=== PATIENT | male | born 1950 | race African-American/Black ===

== ENCOUNTER 2017-05-06 08:25 | Inpatient (IN) | payer OTHER, MEDICAID ==
[~2017-05-06] VITALS: Ht 182.9 cm; Wt 83.0 kg
[2017-05-06] MEDS ORDERED: NAPR-679 PO (08:29)
[2017-05-06] MEDS ORDERED: LORA10TA7 PO (08:29)
[2017-05-06] MEDS ORDERED: AMLODIPINE 2.5MG TABLET PO ONE (08:45)
[2017-05-06 09:22] LABS: BASOPHILS % 1.1 % (0.0-2.0); EOSINOPHILS % 1.4 % (0.0-5.0); HEMATOCRIT. 38.1 % (42.0-52.0); HEMOGLOBIN. 12.6 g/dL (14.0-18.0); LYMPHOCYTES % 39.2 % (20.0-50.0); MEAN CORPUSCULAR HEMOGLOBIN 29.3 pg (28.0-32.0); MEAN CORPUSCULAR VOLUME 88.7 fL (80.0-94.0); MEAN PLATELET VOLUME 10.5 fl (7.4-10.4); MONOCYTES % 7.1 % (2.0-8.0); NEUTROPHILS % 51.2 % (40.0-76.0); PLATELET 138 x1000/uL (130-400); RED BLOOD CELL COUNT 4.29 mill/uL (4.7-6.1); RED CELL DISTRIBUTION WIDTH 13.3 % (11.6-14.6)
[2017-05-06 09:37] LABS: CARBON DIOXIDE 27 mEq/L (21-32); CHLORIDE 110 mEq/L (98-107); TROPONIN I < 0.02 ng/mL (0.00-0.04)
[2017-05-06 09:48] LABS: INR 1.1; PARTIAL THROMBOPLASTIN TIME 23.9 sec (23.4-31.0); PROTHROMBIN TIME 11.2 sec (9.4-11.6)
[2017-05-06 12:28] VITALS: BP 180/82
[2017-05-06] MEDS ORDERED: ENOXAPARIN 40MG/0.4ML SYR SUBCUT SCH ×2 (13:00→22:00)
[2017-05-06] MEDS: LISINOPRIL 40MG TABLET PO SCH ×2 (13:39→20:11)
[2017-05-06] MEDS: HYDROCHLOROTHIAZIDE 25MG TABLET PO SCH (13:39)
[2017-05-06 13:53] VITALS: BP 180/82
[2017-05-06 15:34] LABS: CREATINE KINASE 234 IU/L (39-308); CREATINE KINASE MB FRACTION 3.3 ng/mL (0.5-3.6); TROPONIN I < 0.02 ng/mL (0.00-0.04)
[2017-05-06 16:01] VITALS: BP 130/75
[2017-05-06] MEDS: ACETAMINOPHEN 325MG TABLET PO PRN (20:10)
[2017-05-06 20:18] VITALS: BP 136/76
[2017-05-06] MEDS ORDERED: ONDANSETRON HCL 4MG/2ML VIAL IV PRN (22:00)
[2017-05-06] MEDS ORDERED: HYDROCODONE/ACETAMINOPHEN 5/325MG TABLET PO PRN (22:00)
[2017-05-06] MEDS ORDERED: MORPHINE SULFATE 2 MG/ML CPJ (NOT FOR IM USE) IV PRN (22:00)
[2017-05-06] MEDS ORDERED: CLONIDINE 0.1MG TABLET PO PRN (22:00)
[2017-05-06] MEDS ORDERED: LORAZEPAM 2MG/ML CPJ IV PRN (22:00)
[2017-05-06 23:32] LABS: CREATINE KINASE 187 IU/L (39-308); TROPONIN I < 0.02 ng/mL (0.00-0.04)
[2017-05-07] VITALS: BP 129/75
[2017-05-07 04:00] VITALS: BP 113/75
[2017-05-07 06:22] LABS: HEMATOCRIT 36.8 % (42.0-52.0); HEMOGLOBIN 12.1 g/dL (14.0-18.0); MEAN CORPUSCULAR HEMOGLOBIN 29.3 pg (28.0-32.0); MEAN CORPUSCULAR VOLUME 89.5 fL (80.0-94.0); PLATELET 132 x1000/uL (130-400); RED BLOOD CELL COUNT 4.11 mill/uL (4.7-6.1); RED CELL DISTRIBUTION WIDTH 13.4 % (11.6-14.6)
[2017-05-07 06:55] LABS: CARBON DIOXIDE 28 mEq/L (21-32); CHLORIDE 108 mEq/L (98-107)
[2017-05-07 07:05] LABS: CLARITY URINE CLEAR (CLEAR); COLOR URINE YELLOW (YELLOW); GLUCOSE URINE TRACE (NEGATIVE); KETONES URINE NEGATIVE (NEGATIVE); LEUKOCYTE ESTERASE URINE NEGATIVE (NEGATIVE); NITRITE URINE NEGATIVE (NEGATIVE); OCCULT BLOOD URINE NEGATIVE (NEGATIVE); PROTEIN URINE NEGATIVE (NEGATIVE); SPECIFIC GRAVITY URINE 1.026 (1.005-1.030)
[2017-05-07 07:34] LABS: *AMPHETAMINES SCREEN URINE NEGATIVE (NEGATIVE); *BARBITURATES SCREEN URINE NEGATIVE (NEGATIVE); *BENZODIAZEPINES SCREEN URINE NEGATIVE (NEGATIVE); CANNABINOID URINE SCREEN NEGATIVE (NEGATIVE); METHADONE URINE SCREEN NEGATIVE (NEGATIVE); OPIATES URINE SCREEN NEGATIVE (NEGATIVE); PHENCYCLIDINE URINE SCREEN NEGATIVE (NEGATIVE)
[2017-05-07 08:00] VITALS: BP 139/82
[2017-05-07] MEDS: ACETAMINOPHEN 325MG TABLET PO PRN (08:09)
[2017-05-07] MEDS: HYDROCHLOROTHIAZIDE 25MG TABLET PO SCH (08:53)
[2017-05-07] MEDS: FOLIC ACID 1MG TABLET PO SCH (08:53)
[2017-05-07] MEDS: ASPIRIN 81MG EC TABLET PO SCH (08:53)
[2017-05-07] MEDS: LISINOPRIL 40MG TABLET PO SCH (08:54)
[2017-05-07] MEDS: ENOXAPARIN 40MG/0.4ML SYR SUBCUT SCH (08:55)
[2017-05-07 09:00] LABS: *COCAINE SCREEN URINE NEGATIVE (NEGATIVE)
[2017-05-07] MEDS: POTASSIUM CHLORIDE 20MEQ TABLET SR PO SCH (11:03)
[2017-05-07] MEDS: SODIUM CHLORIDE 0.9% 1,000 ML IV SCH (11:29)
[2017-05-07 12:00] VITALS: BP 124/75
[2017-05-07] MEDS ORDERED: POTASSIUM CHLORIDE 20MEQ TABLET SR PO NR (12:30)
[2017-05-07] MEDS: AMLODIPINE 5MG TABLET PO SCH ×2 (13:21→21:13)
[2017-05-07 16:00] VITALS: BP 115/59
[2017-05-07 20:00] VITALS: BP 122/74
[2017-05-07] MEDS ORDERED: DEXTROSE 50% WATER 50ML SYRINGE IV PRN (21:45)
[2017-05-07] MEDS: INSULIN LISPRO 100 UNITS/ML SUBCUT SCH (22:45)
[2017-05-08] VITALS: BP 120/68
[2017-05-08 04:00] VITALS: BP_SYST 117; BP_SYST 120; BP_DIAS 70; BP_DIAS 71
[2017-05-08] MEDS: SODIUM CHLORIDE 0.9% 1,000 ML IV SCH (04:16)
[2017-05-08 05:44] LABS: BASOPHILS % 0.6 % (0.0-2.0); EOSINOPHILS % 1.6 % (0.0-5.0); HEMATOCRIT. 34.4 % (42.0-52.0); HEMOGLOBIN. 11.3 g/dL (14.0-18.0); LYMPHOCYTES % 53.2 % (20.0-50.0); MEAN CORPUSCULAR HEMOGLOBIN 29.2 pg (28.0-32.0); MEAN PLATELET VOLUME 10.6 fl (7.4-10.4); MONOCYTES % 8.3 % (2.0-8.0); NEUTROPHILS % 36.3 % (40.0-76.0); PLATELET 129 x1000/uL (130-400); RED BLOOD CELL COUNT 3.87 mill/uL (4.7-6.1); RED CELL DISTRIBUTION WIDTH 13.1 % (11.6-14.6)
[2017-05-08] MEDS: BLOOD SUGAR DIAGNOSTIC STRIP TEST SCH ×4 (06:45→20:46)
[2017-05-08 08:00] VITALS: BP 128/75
[2017-05-08] MEDS: ASPIRIN 81MG EC TABLET PO SCH (08:23)
[2017-05-08] MEDS: FOLIC ACID 1MG TABLET PO SCH (08:23)
[2017-05-08] MEDS: AMLODIPINE 5MG TABLET PO SCH ×2 (08:23→20:46)
[2017-05-08] MEDS: POTASSIUM CHLORIDE 20MEQ TABLET SR PO SCH (08:23)
[2017-05-08] MEDS: ENOXAPARIN 40MG/0.4ML SYR SUBCUT SCH (08:24)
[2017-05-08] MEDS: INSULIN LISPRO 100 UNITS/ML SUBCUT SCH ×4 (08:26→20:47)
[2017-05-08 08:44] LABS: CARBON DIOXIDE 25 mEq/L (21-32); CHLORIDE 106 mEq/L (98-107)
[2017-05-08 08:47] LABS: HDL CHOLESTEROL 42 mg/dL (40-59); LDL CHOLESTEROL 74 mg/dL (5-100)
[2017-05-08 12:00] VITALS: BP 135/74
[2017-05-08] MEDS ORDERED: POTASSIUM CHLORIDE 20MEQ TABLET SR PO SCH (12:45)
[2017-05-08 16:00] VITALS: BP 126/76
[2017-05-08 20:00] VITALS: BP 121/66
[2017-05-08 21:29] LABS: VITAMIN B12 SERUM 511 pg/mL (211-911)
[2017-05-09] VITALS (7 sets, daily range): BP systolic 109–137; BP diastolic 63–92
[2017-05-09 06:56] LABS: BASOPHILS % 0.6 % (0.0-2.0); EOSINOPHILS % 1.5 % (0.0-5.0); HEMATOCRIT. 38.9 % (42.0-52.0); HEMOGLOBIN. 12.9 g/dL (14.0-18.0); LYMPHOCYTES % 48.8 % (20.0-50.0); MEAN CORPUSCULAR HEMOGLOBIN 29.4 pg (28.0-32.0); MEAN PLATELET VOLUME 10.7 fl (7.4-10.4); NEUTROPHILS % 41.1 % (40.0-76.0); PLATELET 138 x1000/uL (130-400); RED BLOOD CELL COUNT 4.38 mill/uL (4.7-6.1); RED CELL DISTRIBUTION WIDTH 12.8 % (11.6-14.6)
[2017-05-09] MEDS: BLOOD SUGAR DIAGNOSTIC STRIP TEST SCH ×4 (07:40→21:01)
[2017-05-09 08:02] LABS: CARBON DIOXIDE 28 mEq/L (21-32); CHLORIDE 107 mEq/L (98-107)
[2017-05-09] MEDS: INSULIN LISPRO 100 UNITS/ML SUBCUT SCH ×4 (08:10→21:11)
[2017-05-09] MEDS: ASPIRIN 81MG EC TABLET PO SCH (08:22)
[2017-05-09] MEDS: ENOXAPARIN 40MG/0.4ML SYR SUBCUT SCH (08:25)
[2017-05-09] MEDS: FOLIC ACID 1MG TABLET PO SCH (08:26)
[2017-05-09] MEDS: POTASSIUM CHLORIDE 20MEQ TABLET SR PO SCH (08:26)
[2017-05-09] MEDS: AMLODIPINE 5MG TABLET PO SCH ×2 (08:26→21:01)
[2017-05-09] MEDS ORDERED: REGADENOSON 0.4 MG/5 ML IV ONE (13:30)
[2017-05-09] MEDS ORDERED: IOHEXOL-350 100 ML BOTTLE ONE (13:58)
[2017-05-09] MEDS ORDERED: SODIUM CHLORIDE 0.9% 10ML VIAL ONE (13:58)
[2017-05-10] VITALS (7 sets, daily range): BP systolic 104–138; BP diastolic 66–80
[2017-05-10] MEDS: BLOOD SUGAR DIAGNOSTIC STRIP TEST SCH ×4 (05:51→21:34)
[2017-05-10 06:58] LABS: BASOPHILS % 0.5 % (0.0-2.0); EOSINOPHILS % 1.9 % (0.0-5.0); HEMATOCRIT. 37.5 % (42.0-52.0); HEMOGLOBIN. 12.4 g/dL (14.0-18.0); LYMPHOCYTES % 43.6 % (20.0-50.0); MEAN CORPUSCULAR HEMOGLOBIN 29.6 pg (28.0-32.0); MEAN CORPUSCULAR VOLUME 89.4 fL (80.0-94.0); MEAN PLATELET VOLUME 10.9 fl (7.4-10.4); MONOCYTES % 8.4 % (2.0-8.0); NEUTROPHILS % 45.6 % (40.0-76.0); PLATELET 130 x1000/uL (130-400); RED CELL DISTRIBUTION WIDTH 13.2 % (11.6-14.6)
[2017-05-10 08:05] LABS: CARBON DIOXIDE 27 mEq/L (21-32); CHLORIDE 107 mEq/L (98-107)
[2017-05-10] MEDS: INSULIN LISPRO 100 UNITS/ML SUBCUT SCH ×4 (08:10→22:18)
[2017-05-10] MEDS: ENOXAPARIN 40MG/0.4ML SYR SUBCUT SCH (08:20)
[2017-05-10] MEDS: POTASSIUM CHLORIDE 20MEQ TABLET SR PO SCH (08:21)
[2017-05-10] MEDS: ASPIRIN 81MG EC TABLET PO SCH (08:21)
[2017-05-10] MEDS: FOLIC ACID 1MG TABLET PO SCH (08:21)
[2017-05-10] MEDS: AMLODIPINE 5MG TABLET PO SCH ×2 (08:28→21:34)
[2017-05-10] MEDS: ACETAMINOPHEN 325MG TABLET PO PRN (10:36)
[2017-05-10] MEDS ORDERED: REGADENOSON 0.4 MG/5 ML IV ONE (11:35)
[2017-05-11] VITALS: BP 135/83
[2017-05-11 04:00] VITALS: BP 107/61
[2017-05-11] MEDS: BLOOD SUGAR DIAGNOSTIC STRIP TEST SCH (05:53)
[2017-05-11 08:00] VITALS: BP 140/80
[2017-05-11] MEDS: FOLIC ACID 1MG TABLET PO SCH (08:31)
[2017-05-11] MEDS: ASPIRIN 81MG EC TABLET PO SCH (08:31)
[2017-05-11] MEDS: AMLODIPINE 5MG TABLET PO SCH (08:31)
[2017-05-11] MEDS: POTASSIUM CHLORIDE 20MEQ TABLET SR PO SCH (08:32)
[2017-05-11] MEDS: ENOXAPARIN 40MG/0.4ML SYR SUBCUT SCH (08:34)
[2017-05-11] MEDS: INSULIN LISPRO 100 UNITS/ML SUBCUT SCH (08:35)
[2017-05-11 10:43] VITALS: BP 140/80
[2017-05-11] MEDS ORDERED: PNEUMOCOCCAL 23-VAL P-SAC VAC 0.5 ML IM ONE (11:15)
== END 2017-05-11 12:45 | disposition home or self-care (01) | DRG 639 ==
LOC: ER 08:36 → EDBEDREQ 10:22 → 7WST 11:00 → EDBD 11:00 → EDBEDREQ 11:01 → ENRESERV 11:01 → 7WST 13:24
PROVIDERS: ADMIT Internal Medicine; ATTEND Internal Medicine Nephrology
DX: E11.65 Type 2 diabetes mellitus with hyperglycemia (principal); G93.89 Other specified disorders of brain; G90.8 Other disorders of autonomic nervous system; W18.39XA Other fall on same level, initial encounter; R55 Syncope and collapse; I10 Essential (primary) hypertension; D64.9 Anemia, unspecified; E87.6 Hypokalemia; M19.90 Unspecified osteoarthritis, unspecified site; Z79.899 Other long term (current) drug therapy; Z82.49 Family history of ischemic heart disease and other diseases of the circulatory system; Y93.89 Activity, other specified; Y92.89 Other specified places as the place of occurrence of the external cause; Y99.8 Other external cause status
CPT/HCPCS: 36415; 70450; 70544; 70553; 71010; 71275; 78452; 80048; 80053; 80061; 80305; 81001; 82550; 82553; 82607; 82962; 83036; 83735; 83880; 84443; 84484; 85025; 85027; 85379; 85610; 85730; 90732; 93005; 93017; 93306; 93880; 97116; 97162; 99285; A4216; A9500; J1650; J1815; J2785; J7030; Q9967

== ENCOUNTER 2021-02-28 06:26 | Emergency (ER) | payer OTHER, MEDICAID ==
[~2021-02-28] VITALS: Ht 182.9 cm; Wt 102.0 kg
[~2021-02-28 06:26] MED LIST: LORA10TA7 PO; NAPR-679 PO
[2021-02-28 08:12] LABS: CHLORIDE 109 mEq/L (98-107)
[2021-02-28 08:16] LABS: ETHANOL BLOOD < 10 mg/dL
[2021-02-28 08:24] LABS: EOSINOPHILS % 0.6 % (0.0-5.0); HEMATOCRIT. 36.1 % (42.0-52.0); HEMOGLOBIN. 11.9 g/dL (14.0-18.0); LYMPHOCYTES % 23.1 % (20.0-50.0); MEAN CORPUSCULAR HEMOGLOBIN 30.4 pg (28.0-32.0); MEAN CORPUSCULAR VOLUME 91.9 fL (80.0-94.0); MEAN PLATELET VOLUME 10.6 fl (7.4-10.4); MONOCYTES % 7.4 % (2.0-8.0); NEUTROPHILS % 67.9 % (40.0-76.0); PLATELET 145 x1000/uL (130-400); RED BLOOD CELL COUNT 3.93 mill/uL (4.7-6.1); RED CELL DISTRIBUTION WIDTH 13.2 % (11.6-14.6)
[2021-02-28 09:00] LABS: CLARITY URINE CLEAR (CLEAR); COLOR URINE YELLOW (YELLOW); KETONES URINE NEGATIVE (NEGATIVE); LEUKOCYTE ESTERASE URINE NEGATIVE (NEGATIVE); NITRITE URINE NEGATIVE (NEGATIVE); OCCULT BLOOD URINE NEGATIVE (NEGATIVE); PH URINE 5.5 (4.5-8.0); PROTEIN URINE NEGATIVE (NEGATIVE); SPECIFIC GRAVITY URINE 1.028 (1.005-1.030); UROBILINOGEN URINE 0.2 E.U./dL (0.2-1.0)
[2021-02-28 09:49] LABS: *AMPHETAMINES SCREEN URINE NEGATIVE (NEGATIVE)
[2021-02-28 09:50] LABS: *BARBITURATES SCREEN URINE NEGATIVE (NEGATIVE); *BENZODIAZEPINES SCREEN URINE NEGATIVE (NEGATIVE); *COCAINE SCREEN URINE NEGATIVE (NEGATIVE); METHADONE URINE SCREEN NEGATIVE (NEGATIVE); OPIATES URINE SCREEN NEGATIVE (NEGATIVE); PHENCYCLIDINE URINE SCREEN NEGATIVE (NEGATIVE)
[2021-02-28 09:51] LABS: CANNABINOID URINE SCREEN NEGATIVE (NEGATIVE)
[2021-02-28] MEDS ORDERED: HYDRALAZINE 20MG/ML VIAL IV PRN (11:15)
[2021-02-28] MEDS ORDERED: DEXTROSE 50% WATER 50ML SYRINGE IV PRN (11:15)
[2021-02-28] MEDS ORDERED: BLOOD SUGAR DIAGNOSTIC STRIP TEST SCH (13:00)
[2021-02-28] MEDS ORDERED: INSULIN LISPRO 100 UNITS/ML SUBCUT SCH (13:20)
[2021-02-28 14:04] VITALS: BP 159/79
== END 2021-02-28 14:21 | disposition short-term general hospital (02) ==
LOC: ER 06:26 → EDBEDREQ 10:57 → EDBEDREQTM 10:57 → ER 14:21 → CANBEDREQ 16:40
DX: G93.49 Other encephalopathy (principal); R42 Dizziness and giddiness; R26.9 Unspecified abnormalities of gait and mobility; G91.9 Hydrocephalus, unspecified; I10 Essential (primary) hypertension; E11.9 Type 2 diabetes mellitus without complications; Z91.81 History of falling
CPT/HCPCS: 36415; 71045; 80053; 80305; 80320; 81003; 82962; 84484; 85025; 93005; 99285; G0480